=== PATIENT | male | born 1970 | race Caucasian/White ===

== ENCOUNTER 2017-11-04 17:54 | Emergency (ER) | payer BC ==
[2017-11-04 18:20] VITALS: BP 138/56; PULSE 81; RESP 20; TEMP 98.5
[2017-11-04] MEDS ORDERED: TETANUS-DIPHTHERIA TOX (PF) 0.5 ML VIAL IM ONE (18:54)
[2017-11-04] MEDS ORDERED: DIPH,PERTUS(ACELL)TETVAC-LF 0.5 ML VIAL IM ONE (19:00)
--- NOTE | 2017-11-04 19:05 | XR ---
PROCEDURE: XR finger LT 3V DATE AND TIME: 11/04/2017 7:01 PM CLINICAL INDICATION: [facility] Pain TECHNIQUE: Department protocol. 3V COMPARISON: None FINDINGS: There is no fracture or malalignment. The soft tissues are unremarkable. IMPRESSION: NO ACUTE PROCESS.
--- NOTE | 2017-11-04 19:07 | ED ---
Wound/Laceration HPI - General Chief Complaint: Wound/Laceration Stated Complaint: LACERATION LEFT MIDDLE FINGER Time Seen by Provider: 11/04/17 19:07 Source: patient, RN notes reviewed Mode of arrival: ambulatory Limitations: no limitations - History of Present Illness Initial Comments: This is a 47-year-old male who presents to the emergency department with chief complaint of left middle finger laceration. Patient states prior to arrival he was using an electric screwdriver, accidentally slipped and the screwdriver went into his left middle finger. States he has normal range of motion of the finger and normal sensation. Denies any other injuries or trauma. States he does not believe he is up-to-date with his tetanus vaccination. Denies recent fevers or chills, chest pain shortness of breath, abdominal pain, nausea or vomiting, numbness or tingling. - Related Data Home Medications Medication Instructions Recorded Confirmed Acetaminophen Tab [Tylenol] 500 - 1,000 mg PO Q6H PRN 06/22/15 07/01/15 Diazepam [Valium] 5 mg PO TID PRN 06/22/15 07/01/15 Meclizine [Antivert] 12.5 - 25 mg PO TID PRN 06/22/15 07/01/15 Omeprazole 40 mg PO AC-BRKFST 06/22/15 07/01/15 Albuterol Sulfate [Ventolin HFA] 2 puff INHALATION RT-QID PRN 06/26/15 07/01/15 Oxymetazoline 0.05% Nasl [place] 1 spray EA NOSTRIL DAILY PRN 07/01/15 07/01/15 [Afrin 0.05% Nasal [place]] Previous Rx's Medication Instructions Recorded Ibuprofen [Motrin] 800 mg PO Q8HR PRN #90 tab 07/04/15 Cephalexin [Keflex] 500 mg PO Q12HR #9 cap 11/04/17 Allergies Allergy/AdvReac Type Severity Reaction Status Date / Time No Known Allergies Allergy Verified 11/04/17 18:19 Review of Systems ROS Statement: Those systems with pertinent positive or pertinent negative responses have been documented in the HPI. ROS Other: All systems not noted in ROS Statement are negative. Past Medical History Past Medical History: GERD/Reflux, Musculoskeletal Disorder Additional Past Medical History / Comment(s): hx. re-occurring vertigo, herniated disc, borderline hypertension History of Any Multi-Drug Resistant Organisms: None Reported Past Surgical History: Orthopedic Surgery Additional Past Surgical History / Comment(s): right rotator cuff repair, back surgery 06/25 Past Anesthesia/Blood Transfusion Reactions: Motion Sickness, Postoperative Nausea & Vomiting (PONV) Past Psychological History: No Psychological Hx Reported Smoking Status: Former smoker Past Alcohol Use History: None Reported Past Drug Use History: None Reported - Past Family History Mother Family Medical History: Cancer General Exam - General Exam Comments Initial Comments: General: Awake and alert, well-developed; in no apparent distress. HEENT: Head atraumatic, normocephalic. Pupils are equal, round and reactive to light. Extraocular movements intact. Oropharynx moist without erythema or exudate. Neck: Supple. Normal ROM. Cardiovascular: Regular rate and rhythm. No murmurs, rubs or gallops. Chest symmetrical. Respiratory: Lungs clear to auscultation bilaterally. No wheezes, rales or rhonchi. Normal respiratory effort with no use of accessory muscles. Musculoskeletal: Normal range of motion of the left third finger. Sensation is intact. Radial pulses are 2+ equal and palpable bilaterally. Skin: Approximately 1.5 cm jagged linear laceration across palmar aspect mid left finger. No active bleeding. Neurological: Alert and oriented x3. CN II-XII grossly intact. Speech is fluent and answers are appropriate. No focal neuro deficits. Psychiatric: Normal mood and affect. No overt signs of depression or anxiety noted. Limitations: no limitations Course Vital Signs 11/04/17 18:18 Temperature 98.5 F Pulse Rate 81 Respiratory 20 Rate Blood Pressure 138/56 O2 Sat by Pulse 99 Oximetry Procedures - Laceration Laceration #1 Consent Obtained: verbal consent Indication: laceration Site: hand (Left third finger) Size (cm): 1 Depth: simple, single layer Anesthetic Used: lidocaine 1% Anesthesia Technique: local infiltration Amount (mls): 1 Pre-repair: wound explored, irrigated extensively, deep structures intact Type of Sutures: nylon Size of Sutures: 5-0 Number of Sutures: 2 Technique: simple, interrupted Patient Tolerated Procedure: well, no complications Medical Decision Making - Medical Decision Making This is a 47-year-old male who presents to the emergency department with chief complaint of left finger laceration. Patient sustained an approximately 1.5 cm laceration across the mid left third finger. 2 sutures were placed and patient tolerated well without complication. He is neurovascularly intact. X-ray was obtained which revealed no acute abnormalities. Deep structures are intact. Patient will be started on Keflex. Patient was made up-to-date with tetanus vaccination. Recommended removal of sutures in 10-14 days. Patient is in agreement with plan and voices understanding. His vital signs are stable and he is in no acute distress. He will be discharged home at this time. All questions were answered. - Radiology Data Radiology results: report reviewed Left third finger x-ray impression: No acute process. Disposition Clinical Impression: Finger laceration Disposition: HOME SELF-CARE Condition: Good Instructions: Finger Laceration (ED) Additional Instructions: Please have sutures removed in 10-14 days. Please take medications as prescribed. Please follow up with primary care provider within 1-2 days. Return to emergency department if symptoms should worsen or any concerns arise. Prescriptions: Cephalexin [Keflex] 500 mg PO Q12HR #9 cap Is patient prescribed a controlled substance at d/c from ED?: No Referrals: Daniel Gore MD [Primary Care Provider] - 1-2 days Time of Disposition: 19:46
[2017-11-04] MEDS ORDERED: CEPHALEXIN 500 MG CAP PO STA (19:41)
== END 2017-11-04 20:02 | disposition home or self-care (01) ==
LOC: EC 17:54
DX: S61.213A Laceration without foreign body of left middle finger without damage to nail, initial encounter (principal); K21.9 Gastro-esophageal reflux disease without esophagitis; Z23 Encounter for immunization; Z87.891 Personal history of nicotine dependence; Z98.890 Other specified postprocedural states; Z79.899 Other long term (current) drug therapy; W29.8XXA Contact with other powered hand tools and household machinery, initial encounter; Y92.009 Unspecified place in unspecified non-institutional (private) residence as the place of occurrence of the external cause; Y93.89 Activity, other specified
CPT/HCPCS: 12001; 90471; 90715; 99283

== ENCOUNTER 2021-03-18 09:36 | Emergency (ER) | payer BC ==
[2021-03-18] MEDS ORDERED: ACETAMINOPHEN TAB 500 MG TAB PO STA (10:20)
[2021-03-18] MEDS ORDERED: IBUPROFEN 800 MG TAB PO STA (10:20)
[2021-03-18] MEDS ORDERED: BAMLANIVIMAB (EUA) 700 MG, ETESEVIMAB (EUA) 1,400 MG in SODIUM CHLORIDE 0.9% 100 ML IVPB ONE (10:30)
[2021-03-18] MEDS ORDERED: SODIUM CHLORIDE 0.9% 50 ML IVPB ONE (10:30)
--- NOTE | 2021-03-18 10:31 | ED ---
General Adult HPI - General Chief complaint: Upper Respiratory Infection Stated complaint: Covid +, Headache, Fever Time Seen by Provider: 03/18/21 09:47 Source: patient, RN notes reviewed, old records reviewed Mode of arrival: ambulatory Limitations: no limitations - History of Present Illness Initial comments: Patient is a 51-year-old male with past medical history remarkable for asthma who presents emergency Department complaining of a Covid positive test seeking monoclonal antibody therapy. He endorses upper rest of her symptoms including nonproductive cough, congestion, body pain, mild tension headache and fatigue. Endorses fevers. Denies any shortness breath, chest pain, abdominal pain, nausea, vomiting. Has no other acute complaints at this time. Patient was not vaccinated for COVID-19. - Related Data Home Medications Medication Instructions Recorded Confirmed Acetaminophen Tab [Tylenol] 500 - 1,000 mg PO Q6H PRN 06/22/15 07/01/15 Meclizine [Antivert] 12.5 - 25 mg PO TID PRN 06/22/15 07/01/15 Omeprazole 40 mg PO AC-BRKFST 06/22/15 07/01/15 diazePAM [Valium] 5 mg PO TID PRN 06/22/15 07/01/15 Albuterol Sulfate [Ventolin HFA] 2 puff INHALATION RT-QID PRN 06/26/15 07/01/15 Oxymetazoline 0.05% Nasl [place] 1 spray EA NOSTRIL DAILY PRN 07/01/15 07/01/15 [Afrin 0.05% Nasal [place]] Previous Rx's Medication Instructions Recorded Ibuprofen [Motrin] 800 mg PO Q8HR PRN #90 tab 07/04/15 Cephalexin [Keflex] 500 mg PO Q12HR #9 cap 11/04/17 predniSONE [Deltasone] 40 mg PO DAILY 5 Days #10 tab 03/18/21 Allergies Allergy/AdvReac Type Severity Reaction Status Date / Time No Known Allergies Allergy Verified 03/18/21 09:41 Review of Systems ROS Statement: Those systems with pertinent positive or pertinent negative responses have been documented in the HPI. Review of Systems: CONST: Endorses fever EYES: Denies blurry vision ENT: Endorses nasal congestion C/V: Denies Chest pain RESP: Denies shortness of breath GI: Denies abdominal pain : Denies dysuria SKIN: Denies rash. MSK: Endorses joint pain NEURO: Endorses mild tension headache ROS Other: All systems not noted in ROS Statement are negative. Past Medical History Past Medical History: GERD/Reflux, Musculoskeletal Disorder Additional Past Medical History / Comment(s): hx. re-occurring vertigo, her niated disc, borderline hypertension History of Any Multi-Drug Resistant Organisms: None Reported Past Surgical History: Orthopedic Surgery Additional Past Surgical History / Comment(s): right rotator cuff repair, back surgery 06/25 Past Anesthesia/Blood Transfusion Reactions: Motion Sickness, Postoperative Nausea & Vomiting (PONV) Past Psychological History: No Psychological Hx Reported Smoking Status: Former smoker Past Alcohol Use History: None Reported Past Drug Use History: None Reported - Past Family History Mother Family Medical History: Cancer General Exam - General Exam Comments Initial Comments: General: Appears in no acute distress. Patient is febrile. HEAD: Normal with no signs of head trauma. EYES: PERRLA, EOMI, conjunctiva normal, no discharge. ENT: Hearing grossly intact, normal oropharynx. Active rhinorrhea. RESPIRATORY: Clear breath sounds bilaterally. Very mild end expiratory wheezing.. Not hypoxic. No increased work of breathing. C/V: Regular rate and rhythm. S1 and S2 auscultated, no edema, peripheral pulses 2+ and intact throughout ABD: Abd is soft, nontender, nondistended EXT: Normal range of motion, no obvious deformity SKIN: No rashes or lesions observed on exposed skin. NEURO: Alert and oriented 4. Limitations: no limitations Course Vital Signs 03/18/21 03/18/21 03/18/21 09:41 10:00 12:43 Temperature 99.5 F 101.5 F H 99.0 F Pulse Rate 98 97 Respiratory 16 18 Rate Blood Pressure 124/87 136/77 O2 Sat by Pulse 97 97 Oximetry Medical Decision Making - Medical Decision Making Based on the patient's presentation and physical exam, I'm concerned for acute COVID-19 pneumonia. He does have his positive results and his email, which she just got today. He was tested last Friday and symptoms started last Friday. He is not hypoxic no signs of respiratory distress. I do not believe that he requires further laboratory studies or imaging at this time. For his fever as well as mild headache, he will be administered Tylenol and Motrin. I did discuss with him monoclonal antibody therapy, which he did consent to. We were able to printed off his Covid 19 results. Patient tolerated therapy well. We discussed quarantine, as well as use of [id number] vitamin C, zinc. He has Ventolin at home already. As the patient is mildly wheezy, I will provide him with a prescription for prednisone as well, especially since he is a history of asthma. He was in agreement this plan. Strict return precautions were provided. Patient will be discharged home at this time. He was in agreement this plan. I instructed the patient to follow up with their PCP in the next 3 days. I explained that the patient should return to the emergency department if they experience any worsening symptoms. Strict return precautions were discussed with the patient. The patient expressed understanding of these instructions. I answered all questions that the patient had. The patient was discharged home in fair condition with their prescriptions and follow up information. Disposition Clinical Impression: COVID-19 virus infection Disposition: HOME SELF-CARE Condition: Fair Instructions (If sedation given, give patient instructions): Coronavirus Disease 2019 (COVID-19) Prescriptions: predniSONE [Deltasone] 40 mg PO DAILY 5 Days #10 tab Is patient prescribed a controlled substance at d/c from ED?: No Referrals: Sahil Dwyer MD [Primary Care Provider] - 1-2 days
[2021-03-18] MEDS ORDERED: predniSONE 50 MG TAB PO STA (10:54)
[2021-03-18] MEDS ORDERED: ALBUTEROL HFA INHALER INHALATION STA (10:55)
[2021-03-18 12:44] VITALS: BP 136/77; PULSE 97; RESP 18; TEMP 99
== END 2021-03-18 12:44 | disposition home or self-care (01) ==
LOC: EC 09:36
DX: U07.1 COVID-19 (principal); K21.9 Gastro-esophageal reflux disease without esophagitis; Z87.891 Personal history of nicotine dependence; Z79.1 Long term (current) use of non-steroidal anti-inflammatories (NSAID); Z79.899 Other long term (current) drug therapy
CPT/HCPCS: 99284; J7512; J3490

== ENCOUNTER 2021-12-19 20:20 | Observation (INO) | payer BC ==
[2021-12-19 21:21] LABS: Glucose,Whole Blood 99 mg/dL (70-110)
--- NOTE | 2021-12-19 21:26 | ED ---
General Adult HPI - General Chief complaint: Neuro Symptoms/Deficit Stated complaint: light headed, balance loss Time Seen by Provider: 12/19/21 21:11 Source: patient, RN notes reviewed, old records reviewed Mode of arrival: ambulatory Limitations: no limitations - History of Present Illness Initial comments: Patient is a 51-year-old male with past medical history remarkable for vertigo, chronic back pain who presents emergency Department complaining of sudden onset of neurological symptoms. Patient woke at approximately 6:30 PM this evening. He does work night shifts, went to bed last night having last awoken at 1:30 PM this afternoon to walk the dog's and had no symptoms. When he awoke at 6:30 PM, he felt off balance, and this was a different sensation than his normal vertigo. Denies any room spinning sensation or lightheadedness but states he feels off balance with walking and feels weak on the left side of his body. Presents to the emergency department this evening for further evaluation. I evaluated him when he was placed in a room and was notified by nursing staff of his condition. He states he feels better than earlier, however still has similar symptoms as earlier. States off-balance sensation may be improved. He denies any chest pain, shortness breath, abdominal pain, nausea, vomiting. Denies any headache. Denies any blurry vision or change in vision. Does have a chronic "lazy eye on the right". Denies any other acute complaints at this time. Denies any trauma or injury. Denies being on blood thinners. Denies any history of TIA or stroke. - Related Data Home Medications Medication Instructions Recorded Confirmed No Known Home Medications 12/19/21 12/19/21 Allergies Allergy/AdvReac Type Severity Reaction Status Date / Time morphine AdvReac Vomiting Verified 12/19/21 21:40 Review of Systems ROS Statement: Those systems with pertinent positive or pertinent negative responses have been documented in the HPI. Review of Systems: CONST: Denies fever EYES: Denies blurry vision ENT: Denies nasal congestion C/V: Denies Chest pain RESP: Denies shortness of breath GI: Denies abdominal pain : Denies dysuria SKIN: Denies rash. MSK: Denies joint pain. NEURO: Endorses left-sided weakness, feeling of off balance ROS Other: All systems not noted in ROS Statement are negative. Past Medical History Past Medical History: GERD/Reflux, Musculoskeletal Disorder Additional Past Medical History / Comment(s): hx. re-occurring vertigo, herniated disc, borderline hypertension History of Any Multi-Drug Resistant Organisms: None Reported Past Surgical History: Orthopedic Surgery Additional Past Surgical History / Comment(s): right rotator cuff repair, back surgery 06/25 Past Anesthesia/Blood Transfusion Reactions: Motion Sickness, Postoperative Nausea & Vomiting (PONV) Past Psychological History: No Psychological Hx Reported Smoking Status: Former smoker Past Alcohol Use History: None Reported Past Drug Use History: None Reported - Past Family History Mother Family Medical History: Cancer General Exam - General Exam Comments Initial Comments: General: Appears in no acute distress. HEAD: Normal with no signs of head trauma. EYES: PERRLA, EOMI, conjunctiva normal, no discharge. Pupils are 3 mm and equal bilaterally. ENT: Hearing grossly intact, normal oropharynx. RESPIRATORY: Clear breath sounds bilaterally. No wheezes, rales, or rhonchi. C/V: Regular rate and rhythm. S1 and S2 auscultated, no edema, peripheral pulses 2+ and intact throughout ABD: Abd is soft, nontender, nondistended EXT: Normal range of motion, no obvious deformity SKIN: No rashes or lesions observed on exposed skin. NEURO: Alert and oriented x 4. Cranial nerves II-XII intact. GCS of 15. NIH of approximately 3. 1 point for left upper extremity ataxia, and 1 point for left upper extremity and left lower extremity weakness with drift each. Normal [id number]-[id number] testing. Absence of dysdiadochokinesia. No sensory deficits. Limitations: no limitations Course Vital Signs 12/19/21 12/19/21 12/19/21 21:01 21:06 21:18 Temperature 98.2 F Pulse Rate 73 78 81 Respiratory 20 15 15 Rate Blood Pressure 155/88 159/71 166/74 O2 Sat by Pulse 98 100 98 Oximetry 12/19/21 12/19/21 22:03 22:29 Temperature Pulse Rate 72 78 Respiratory 15 15 Rate Blood Pressure 160/105 161/102 O2 Sat by Pulse 99 98 Oximetry Medical Decision Making - Medical Decision Making Based on patient's presentation and physical exam, and concern for his CVA. Patient does have a history of vertigo but the symptoms are different than his typical vertiginous symptoms. Has no lightheadedness or dizziness but just a feeling of being off balance. Also has drift in the left upper and left lower extremities. NIH is 3. Last known well was approximately 1:30 PM, which is approximate 7-1/2 hours prior to evaluation. Woke up with symptoms at 6:30 PM this evening. Patient is not a TPA candidate, as he is outside of the typical window and risks far outweigh the benefits at this time. Patient states sy mptoms are mildly improved from earlier. Code stroke was activated. We will obtain CT head imaging as well as laboratory studies. Vital signs are within acceptable limits. Point of care blood sugar is within acceptable limits. Patient was in agreement this plan. Patient's EKG does show signs of T-wave inversions in leads II, III, aVF with no recent prior EKG in our system. These findings are of an unknown chronicity.I spoke with neuro critical care Dr. Ellsworth who was in agreement to plan. Her blood sugar was within normal limits. Laboratory studies are unremarkable including an undetectable troponin. Chest x-ray showed no acute cardio pulmonary process. Brain CT showed no acute intracranial process. CT angiogram of the brain showed no acute intracranial process. On reevaluation, patient's NIH is 0. He will receive 325 mg of aspirin. Patient will be admitted at this time to observation for further monitoring. Neurology Dr. Chan was consulted to evaluate the patient in the morning. See consult to cardiology due to the EKG findings we will obtain traditional troponins. His no cardiac complaints including denying chest pain. EKG findings are of unknown ch ronicity. We discussed the likely is experiencing a TIA, as his symptoms have completely resolved. Expressed understanding. I answered all questions that had. I spoke with the admitting team, RONALD Sanchez of [facility] who accepted the patient. Patient was admitted to a telemetry bed. - Lab Data Result diagrams: 12/19/21 21:12/19/21 21:22 Lab Results 12/19/21 12/19/21 12/19/21 Range/Units : 21:: WBC 6.2 (3.8-10.6) k/uL RBC 5.27 (4.30-5.90) m/uL Hgb 16.3 (13.0-17.5) gm/dL Hct 46.6 (39.0-53.0) % MCV 88.5 (80.0-100.0) fL MCH 31.0 (25.0-35.0) pg MCHC 35.0 (31.0-37.0) g/dL RDW 11.3 L (11.5-15.5) % Plt Count 243 (150-450) k/uL MPV 7.7 Neutrophils % 62 % Lymphocytes % 26 % Monocytes % 6 % Eosinophils % 2 % Basophils % 1 % Neutrophils # 3.9 (1.3-7.7) k/uL Lymphocytes # 1.6 (1.0-4.8) k/uL Monocytes # 0.4 (0-1.0) k/uL Eosinophils # 0.1 (0-0.7) k/uL Basophils # 0.1 (0-0.2) k/uL PT 10.4 (9.0-12.0) sec INR 0.9 (<1.2) APTT 24.4 (22.0-30.0) sec Sodium (137-145) mmol/L Potassium (3.5-5.1) mmol/L Chloride (98-107) mmol/L Carbon Dioxide (22-30) mmol/L Anion Gap mmol/L BUN (9-20) mg/dL Creatinine (0.66-1.25) mg/dL Est GFR (CKD-EPI)AfAm (>60 ml/min/1.73 sqM) Est GFR (CKD-EPI)NonAf (>60 ml/min/1.73 sqM) Glucose (74-99) mg/dL POC Glucose (mg/dL) 99 (70-110) mg/dL POC Glu Floor Covering Layer ID Berny Caba Calcium (8.4-10.2) mg/dL Total Bilirubin (0.2-1.3) mg/dL AST (17-59) U/L ALT (4-49) U/L Alkaline Phosphatase (38-126) U/L Troponin I (0.000-0.034) ng/mL Total Protein (6.3-8.2) g/dL Albumin (3.5-5.0) g/dL 12/19/21 12/19/21 Range/Units 21:22 21:22 WBC (3.8-10.6) k/uL RBC (4.30-5.90) m/uL Hgb (13.0-17.5) gm/dL Hct (39.0-53.0) % MCV (80.0-100.0) fL MCH (25.0-35.0) pg MCHC (31.0-37.0) g/dL RDW (11.5-15.5) % Plt Count (150-450) k/uL MPV Neutrophils % % Lymphocytes % % Monocytes % % Eosinophils % % Basophils % % Neutrophils # (1.3-7.7) k/uL Lymphocytes # (1.0-4.8) k/uL Monocytes # (0-1.0) k/uL Eosinophils # (0-0.7) k/uL Basophils # (0-0.2) k/uL PT (9.0-12.0) sec INR (<1.2) APTT (22.0-30.0) sec Sodium 139 (137-145) mmol/L Potassium 4.8 (3.5-5.1) mmol/L Chloride 100 (98-107) mmol/L Carbon Dioxide 25 (22-30) mmol/L Anion Gap 14 mmol/L BUN 13 (9-20) mg/dL Creatinine 1.14 (0.66-1.25) mg/dL Est GFR (CKD-EPI)AfAm 85 (>60 ml/min/1.73 sqM) Est GFR (CKD-EPI)NonAf 73 (>60 ml/min/1.73 sqM) Glucose 108 H (74-99) mg/dL POC Glucose (mg/dL) (70-110) mg/dL POC Glu Floor Covering Layer ID Calcium 9.4 (8.4-10.2) mg/dL Total Bilirubin 0.6 (0.2-1.3) mg/dL AST 32 (17-59) U/L ALT 38 (4-49) U/L Alkaline Phosphatase 71 (38-126) U/L Troponin I <0.012 (0.000-0.034) ng/mL Total Protein 7.5 (6.3-8.2) g/dL Albumin 4.7 (3.5-5.0) g/dL - EKG Data -: EKG Interpreted by [facility] EKG Comments: 12-lead Electrocardiogram Interpretation Note EKG was reviewed and interpreted by myself. 12-lead ECG performed at 2118 is interpreted by me as revealing normal sinus rhythm at a rate of 75 beats per minute. [place] is normal. [place] Intervals 137 ms, QRS duration is 100 ms, QTc is 392 ms.. There are T-wave inversions in leads II, III, aVF. Only prior EKGs from over 6 years ago and these appear new. No ST segment depressions or elevations.. R wave progression across the precordium was satisfactory. By my interpretation, this EKG does show T-wave inversions in inferior leads which are new from a prior EKG from 2016. Findings are of an unknown chronicity. Critical Care Time Critical Care Time: Yes Total Critical Care Time: 35 Critical Care Time: Upon my evaluation, this patient had a high probability of imminent or life- threatening deterioration due to TIA, stroke activation, which required my direct attention, intervention, and personal management. I have personally provided 35 minutes of critical care time exclusive of time s pent on separately billable procedures. Time includes review of laboratory data, radiology results, discussion with consultants, and monitoring for potential decompensation. Interventions were performed as documented in my note. Disposition Clinical Impression: TIA (transient ischemic attack), T wave inversion in EKG Disposition: ADMITTED IP TO THIS [facility] Condition: Stable Time of Disposition: 22:50
[2021-12-19 21:40] LABS: Basophils # (A) 0.1 k/uL (0-0.2); Basophils % (A) 1 %; Eosinophils # (A) 0.1 k/uL (0-0.7); Eosinophils % (A) 2 %; HCT 46.6 % (39.0-53.0); HGB 16.3 gm/dL (13.0-17.5); Lymphocytes # (A) 1.6 k/uL (1.0-4.8); Lymphocytes % (A) 26 %; MCV 88.5 fL (80.0-100.0); Mean Platelet Volume 7.7; Monocytes # (A) 0.4 k/uL (0-1.0); Monocytes % (A) 6 %; Neutrophils # (A) 3.9 k/uL (1.3-7.7); Neutrophils % (A) 62 %; Platelet Count 243 k/uL (150-450); RBC 5.27 m/uL (4.30-5.90); RDW 11.3 % (11.5-15.5); WBC 6.2 k/uL (3.8-10.6)
--- NOTE | 2021-12-19 21:45 | CT ---
EXAMINATION TYPE: CT brain wo con for TPA CT DLP: 1255.8 mGycm, Automated exposure control for dose reduction was used. DATE OF EXAM: 12/19/2021 9:32 PM COMPARISON: CT brain 02/07/2015. CLINICAL INDICATION:Male, 51 years old with history of Neuro deficit, acute, stroke suspected, Neuro deficit, acute, stroke suspected TECHNIQUE: Brain: Axial CT images of the brain were obtained with coronal and sagittal reformats created and rev iewed. Contrast used: None. Oral contrast used: None. FINDINGS: Brain: Extra-axial spaces: No abnormal extra-axial fluid collections. Ventricular system: Within normal limits Cerebral parenchyma: No acute intraparenchymal hemorrhage or mass effect. The lujan-white junction is well differentiated. Cerebellum: Unremarkable. Mass effect: No evidence of midline shift. Intracranial vasculature: Atherosclerotic calcifications of the intracranial vessels. Soft tissues: Normal. Calvarium/osseous structures: No depressed skull fracture. Paranasal sinuses and mastoid air cells: Mild scattered paranasal sinus disease. Visualized orbits: Orbital contents are intact. IMPRESSION: No acute intracranial process.
[2021-12-19 21:50] LABS: Albumin 4.7 g/dL (3.5-5.0); Calcium 9.4 mg/dL (8.4-10.2); INR 0.9 (<1.2); Partial Thromboplastin Time 24.4 sec (22.0-30.0); Potassium 4.8 mmol/L (3.5-5.1); Prothrombin Time 10.4 sec (9.0-12.0); Total Bilirubin 0.6 mg/dL (0.2-1.3); Total Protein 7.5 g/dL (6.3-8.2)
--- NOTE | 2021-12-19 22:23 | CT ---
EXAMINATION TYPE: CT angio head neck DATE OF EXAM: 12/19/2021 COMPARISON: None HISTORY: Neuro deficit, acute, stroke suspected CT DLP: 2098.7 mGycm Automated exposure control for dose reduction was used. CONTRAST: Performed with IV Contrast, patient injected with 65cc mL of Isovue 370. Images obtained from the aortic arch to the vertex of the brain with the IV contrast. There are 3-D p ost processed images. There is normal branching pattern of the great vessels on the aortic arch. There is arterial flow in both subclavian arteries. There is arterial flow in the common internal and extra carotid arteries bi laterally. There is wide patency of the carotid artery bifurcations. There is arterial flow in both v ertebral arteries. Left vertebral artery is larger than the right. There is arterial flow in the vert ebral basilar artery system. There is arterial flow in the anterior middle and posterior cerebral arteries. No mass effect. No zac dence of intracranial arterial stenosis. No evidence of intracranial aneurysm or neovascularity. Ther e is normal enhancement of the venous sinuses. IMPRESSION: Negative CT angiogram of the neck. Negative CT angiogram of the brain.
[2021-12-19] MEDS ORDERED: ASPIRIN 325 MG TAB PO STA (22:36)
--- NOTE | 2021-12-19 23:22 | XR ---
EXAMINATION TYPE: XR chest 2V DATE OF EXAM: 12/19/2021 COMPARISON: 06/22/2015 HISTORY: Altered mental status TECHNIQUE: 2 view FINDINGS: Heart and mediastinum are normal. Lungs are clear. Diaphragm is normal. Bony thorax is inta ct. IMPRESSION: Normal chest. No change.
[2021-12-20 09:15] LABS: Chol/HDL Ratio 4.98 Ratio; LDL Cholesterol,Calculated 147.2 mg/dL (0.0-131.0)
--- NOTE | 2021-12-20 10:28 | P.CRDCN ---
History of Present Illness History of present illness: HISTORY OF PRESENTING ILLNESS This is a pleasant 51-year-old male past medical history significant for history of tobacco use quit 2013, GERD, and vertigo. He does not follow with a cardiolog ist. We are being consulted for EKG changes of unknown chronicity. He presents to the ER with complaints of episode yesterday of sudden onset of left sided weakness and gait disturbance. He works midnights, he woke up to take his dogs out and he suddenly felt off balance, he also had left arm and left-sided weakness. He felt as if he may fall. He states the symptoms were different than what he has with vertigo. He denies any lightheadedness, dizziness, palpitations, chest pain or shortness of breath. He denies any visual or auditory changes. He denies any bladder or bowel incontinence. His symptoms lasted for about 3-4 hours and his left sided weakness resolved around 10pm last night. He feels back to baseline. He has a family history of coronary disease with his father and mother having NM in 50s. He is a former tobacco smoker. Denies any alcohol or illicit drug use. He denies any history of CAD, NM, diabetes, hypertension, stroke, seizure, or arrhythmia. He takes no medications DIAGNOSTICS * EKG reveals sinus rhythm, heart rate 75, T wave inversions in inferior leads. No acute ischemia noted. * Telemetry tracings not available for review at bedside. * Chest xray no acute cardiopulmonary process * Brain CT reported no intracranial abnormality. * CT angiography of head and neck reported no acute abnormality. * Laboratory reviewed, CBC unremarkable, troponin negative 3, sodium 139, potassium 4.8, BUN 13, serum creatinine 1.1, triglycerides 111, cholesterol 212, LDL 147, HDL 42 REVIEW OF SYSTEMS At the time of my exam: CONSTITUTIONAL: Denies fever or chills. CARDIOVASCULAR: Denies chest pain, shortness of breath, orthopnea, PND or palpitations. RESPIRATORY: Denies cough. GASTROINTESTINAL: Denies abdominal pain, diarrhea, constipation, nausea or vomiting. MUSCULOSKELETAL: Denies myalgias. NEUROLOGIC: Denies numbness, tingling, headacbe or weakness. ENDOCRINE: Denies fatigue, weight change, polydipsia or polyurina. GENITOURINARY: Denies burning, hematuria or urgency with micturation. HEMATOLOGIC: Denies history of anemia or bleeding. PHYSICAL EXAMINATION Blood pressure 124/79, heart rate 87, afebrile, oxygen saturation is 98% on room air CONSTITUTIONAL: No apparent distress. HEENT: Head is normocephalic. Pupils are equal, round. Sclerae anicteric. Mucous membranes of the mouth are moist. No JVD. No carotid bruit. CHEST EXAMINATION: Lungs are clear to auscultation. No chest wall tenderness is noted on palpation or with deep breathing. HEART EXAMINATION: Regular rate and rhythm. S1, S2 heard. No murmurs, gallops or rub. ABDOMEN: Soft, nontender. Positive bowel sounds. EXTREMITIES: 2+ peripheral pulses, no lower extremity edema and no calf tendern ess. NEUROLOGIC EXAMINATION: Patient is awake, alert and oriented x3. ASSESSMENT Acute episode of Left sided weakness and gait imbalance, resolved concerning for TIA T wave inversions in inferior leads, no acute ischemic changes noted on EKG History of tobacco use Family history of coronary artery disease GERD History of Vertigo Dyslipidemia PLAN Obtain 2D echocardiogram and doppler study to assess cardiac structure and function. Lipid panel Neurology consulted Consider [facility] as inpatient vs outpatient, if patient remains inpatient overnight procedure can be completed tomorrow with Dr. Carrillo, patient is agreeable. This was also discussed with Neurology Dr. Chan Recommend 30 day event monitor prior to discharge If patient is discharged today per neurology and primary, follow up outpatient with Dr. Carrillo. Nurse practitioner note has been reviewed by physician. Signing provider agrees with the documented findings, assessment, and plan of care. Past Medical History Past Medical History: GERD/Reflux, Musculoskeletal Disorder Additional Past Medical History / Comment(s): hx. re-occurring vertigo, herniat ed disc, borderline hypertension History of Any Multi-Drug Resistant Organisms: None Reported Past Surgical History: Orthopedic Surgery Additional Past Surgical History / Comment(s): right rotator cuff repair, back surgery 06/25 Past Anesthesia/Blood Transfusion Reactions: Motion Sickness, Postoperative Nausea & Vomiting (PONV) Past Psychological History: No Psychological Hx Reported Smoking Status: Former smoker Past Alcohol Use History: None Reported Past Drug Use History: None Reported - Past Family History Mother Family Medical History: Cancer Father Family Medical History: Diabetes Mellitus Additional Family Medical History / Comment(s): Father had heart problems. Medications and Allergies Home Medications Medication Instructions Recorded Confirmed Type No Known Home Medications 12/19/21 12/19/21 History Allergies Allergy/AdvReac Type Severity Reaction Status Date / Time morphine AdvReac Vomiting Verified 12/19/21 21:40 Physical Exam Vitals: Vital Signs Temp Pulse Resp BP Pulse Ox 12/20/21 07:00 62 16 141/82 97 12/20/21 02:45 74 15 144/110 99 12/19/21 22:29 78 15 161/102 98 12/19/21 22:03 72 15 160/105 99 12/19/21 21:18 81 15 166/74 98 12/19/21 21:06 78 15 159/71 100 12/19/21 21:01 98.2 F 73 20 155/88 98 Intake and Output 12/19/21 12/20/21 12/20/21 22:59 06:59 14:59 Other: Weight 128.82 kg Results 12/19/21 21:22 12/19/21 21:22 Cardiac Enzymes 12/19/21 12/19/21 12/20/21 Range/Units 21:22 21:22 00:12 AST 32 (17-59) U/L Troponin I <0.012 <0.012 (0.000-0.034) ng/mL 12/20/21 Range/Units 04:16 AST (17-59) U/L Troponin I <0.012 (0.000-0.034) ng/mL Coagulation 12/19/21 Range/Units 21:22 PT 10.4 (9.0-12.0) sec APTT 24.4 (22.0-30.0) sec CBC 12/19/21 Range/Units 21:22 WBC 6.2 (3.8-10.6) k/uL RBC 5.27 (4.30-5.90) m/uL Hgb 16.3 (13.0-17.5) gm/dL Hct 46.6 (39.0-53.0) % Plt Count 243 (150-450) k/uL Comprehensive Metabolic Panel 12/19/21 Range/Units 21:22 Sodium 139 (137-145) mmol/L Potassium 4.8 (3.5-5.1) mmol/L Chloride 100 (98-107) mmol/L Carbon Dioxide 25 (22-30) mmol/L BUN 13 (9-20) mg/dL Creatinine 1.14 (0.66-1.25) mg/dL Glucose 108 H (74-99) mg/dL Calcium 9.4 (8.4-10.2) mg/dL AST 32 (17-59) U/L ALT 38 (4-49) U/L Alkaline Phosphatase 71 (38-126) U/L Total Protein 7.5 (6.3-8.2) g/dL Albumin 4.7 (3.5-5.0) g/dL Intake and Output 12/19/21 12/20/21 12/20/21 22:59 06:59 14:59 Other: Weight 128.82 kg 12/19/21 21:22 12/19/21 21:22
--- NOTE | 2021-12-20 10:29 | P.HPIM ---
History of Present Illness This is a pleasant 50 years old male with no significant past medical history. He is a patient of Dr. Null Presents because of loss of bolus and vertigo with junk feeling numbness in the left hand and weakness in the left leg and left arm Per records Surgeon himself states that he woke up yesterday from sleep at 6:30 and noticed that is been having difficulty walking because of bolus issue, he felt like he is trying although he did not have any headache or dizziness or lightheadedness. He had weakness in his left arm and leg with some tingling and numbness in his left hand. His symptoms lasted 2.5-to 3 hours. Patientstates his back to or close to his baseline. He denies smoking, he quit 9 years ago, no alcohol or illicit drugs Patient is hemodynamically stable, afebrile,. Labs show an unremarkable CBC, INR, BMP and liver enzymes. Serial troponins are negative. EKG showing normal sinus rhythm at [address]-T changes, patient has some T wave inversion and aVF. Chest x-ray: Normal chest. CTA of the head and neck: Negative exam for angiogram of the neck and negative CT angiogram of the brain Brain CT: No acute process or hemorrhage. Review of Systems Review of systems CONSTITUTIONAL: No fever, no malaise, no fatigue. HEENT: No recent visual problems or hearing problems. Denied any sore throat. CARDIOVASCULAR: No orthopnea, PND, no palpitations, no syncope. PULMONARY: No shortness of breath, no cough, no hemoptysis. GASTROINTESTINAL: No diarrhea, no nausea, no vomiting, no abdominal pain. Normoactive bowel sounds. NEUROLOGICAL: No headaches, no weakness, no numbness. HEMATOLOGICAL: Denies any bleeding or petechiae. GENITOURINARY: Denies any burning micturition, frequency, or urgency. MUSCULOSKELETAL/RHEUMATOLOGICAL: Denies any joint pain, swelling, or any muscle pain. ENDOCRINE: Denies any polyuria or polydipsia. Past Medical History Past Medical History: GERD/Reflux, Musculoskeletal Disorder Additional Past Medical History / Comment(s): hx. re-occurring vertigo, herniated disc, borderline hypertension History of Any Multi-Drug Resistant Organisms: None Reported Past Surgical History: Orthopedic Surgery Additional Past Surgical History / Comment(s): right rotator cuff repair, back surgery 06/25 Past Anesthesia/Blood Transfusion Reactions: Motion Sickness, Postoperative Nausea & Vomiting (PONV) Past Psychological History: No Psychological Hx Reported Smoking Status: Former smoker Past Alcohol Use History: None Reported Past Drug Use History: None Reported - Past Family History Mother Family Medical History: Cancer Father Family Medical History: Diabetes Mellitus Additional Family Medical History / Comment(s): Father had heart problems. Medications and Allergies Home Medications Medication Instructions Recorded Confirmed Type No Known Home Medications 12/19/21 12/19/21 History Allergies Allergy/AdvReac Type Severity Reaction Status Date / Time morphine AdvReac Vomiting Verified 12/19/21 21:40 Physical Exam Vitals: Vital Signs Temp Pulse Resp BP Pulse Ox 12/20/21 02:45 74 15 144/110 99 12/19/21 22:29 78 15 161/102 98 12/19/21 22:03 72 15 160/105 99 12/19/21 21:18 81 15 166/74 98 12/19/21 21:06 78 15 159/71 100 12/19/21 21:01 98.2 F 73 20 155/88 98 Intake and Output 12/19/21 12/20/21 12/20/21 22:59 06:59 14:59 Other: Weight 128.82 kg GENERAL: The patient is alert and oriented x3, not in any acute distress. Well developed, well nourished. HEENT: Pupils are round and equally reacting to light. EOMI. No scleral icterus. No conjunctival pallor. Normocephalic, atraumatic. No pharyngeal erythema. No thyromegaly. CARDIOVASCULAR: S1 and S2 present. No murmurs, rubs, or gallops. PULMONARY: Chest is clear to auscultation, no wheezing or crackles. ABDOMEN: Soft, nontender, nondistended, normoactive bowel sounds. No palpable organomegaly. MUSCULOSKELETAL: No joint swelling or deformity. EXTREMITIES: No cyanosis, clubbing, or pedal edema. NEUROLOGICAL: Gross neurological examination did not reveal any focal deficits. SKIN: No rashes. no petechiae. Results CBC & Chem 7: 12/19/21 21:22 12/19/21 21:22 Labs: Abnormal Lab Results - Last 24 Hours (Table) 12/19/21 12/19/21 Range/Units : 21: RDW 11.3 L (11.5-15.5) % Glucose 108 H (74-99) mg/dL Assessment and Plan Assessment: Episodes of left hemiparesis , possibly associated with vertigo and ataxia, Suspicious for CVA/TIA Obesity with BMI of 39.6, Plan: This is a pleasant 50 years old male who presents with varices and vertigo suspicious for TIA Continue with aspirin Neurology consult Labs and medication were reviewed.. Continue same treatment. Continue with symptomatic treatment. Resume home medication. Monitor lytes and vitals. DVT and GI prophylaxis. Further recommendations as per clinical course of the patient DVT prophylaxis: Subcutaneous heparin GI Prophylaxis: Pepcid
[2021-12-20] MEDS ORDERED: ATORVASTATIN 40 MG TAB PO SCH ×2 (10:30→21:00)
--- NOTE | 2021-12-20 11:06 | CA ---
Transthoracic Echo Report Name: Krystle Aguirre Age: 51 Gender: M : 1970 Exam Date: 12/20/2021 10:25 Exam Location: [facility] Ht (in): 71 Wt (lb): 284 Ordering Physician: Chantelle Rhodes Attending/Referring Phys: Land Title Examiner Celeste Mooney RDCS Procedure CPT: Indications: tia Cardiac Hx: Technical Quality: Fair Contrast 1: Total Dose (mL): Contrast 2: Total Dose (mL): MEASUREMENTS (Male / Female) Normal Values 2D ECHO LV Diastolic Diameter PLAX 4.7 cm 4.2 - 5.9 / 3.9 - 5.3 cm LV Systolic Diameter PLAX 3.0 cm IVS Diastolic Thickness 1.3 cm 0.6 - 1.0 / 0.6 - 0.9 cm LVPW Diastolic Thickness 1.3 cm 0.6 - 1.0 / 0.6 - 0.9 cm LV Relative Wall Thickness 0.6 RV Internal Dim ED PLAX 3.3 cm LA Systolic Diameter LX 4.1 cm 3.0 - 4.0 / 2.7 - 3.8 cm LA Volume 78.8 cm??? 18 - 58 / 22 - 52 cm??? M-MODE Aortic Root Diameter MM 3.6 cm MV E Point Septal Separation 1.0 cm AV Cusp Separation MM 1.7 cm DOPPLER AV Peak Velocity 149.7 cm/s AV Peak Gradient 9.0 mmHg MV Area PHT 3.6 cm??? Mitral E Point Velocity 81.6 cm/s Mitral A Point Velocity 95.7 cm/s Mitral E to A Ratio 0.9 MV Deceleration Time 213.0 ms FINDINGS Left Ventricle Left ventricular ejection fraction is estimated at 60-65 %. Left ventricular cavity size normal. Mild concentric left ventricular hypertrophy. Right Ventricle Mild right ventricular dilatation. Unable to estimate the right ventricular systolic pressure. Right Atrium Normal right atrial size. Left Atrium Mildly increased left atrial diameter. Moderately increased left atrial volume. Mildly increased left atrial area. No evidence for an atrial septal defect. Mitral Valve Structurally normal mitral valve. No evidence for mitral valve prolapse. Mild mitral regurgitation. Aortic Valve Trileaflet aortic valve. No aortic valve stenosis or regurgitation. Focal thickening of the aortic valve cusps. Tricuspid Valve Structurally normal tricuspid valve. No tricuspid stenosis, regurgitation or prolapse. Pulmonic Valve Trace pulmonic regurgitation. Pericardium Normal pericardium. No pericardial effusion. Aorta Normal size aortic root and proximal ascending aorta. CONCLUSIONS Left ventricular ejection fraction 60-65% Moderate LVH Mild to moderately dilated left atrium Mild mitral regurgitation No pericardial effusion Previewed by: Dr. Stephen Carrillo DO (Electronically Signed) Final Date: 20 December 2021 11:05
--- NOTE | 2021-12-20 13:37 | P.CNNES ---
History of Present Illness Consult date: 12/20/21 Requesting physician: Tristin Looney Reason for Consult: TIA History of Present Illness: Patient is a 51-year-old right-handed male came to the hospital yesterday at 8:20 PM for evaluation of transient episode of lightheadedness, dizziness, imbalance. 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 Yesterday afternoon he was in usual state of health. He went to sleep at 3 PM, and woke up at 6:30 PM. When he woke up, he was fine. As soon as he stood up to take his dog out, he felt very imbalanced, lightheaded, dizzy, but no vertigo. He had to use the chappell to stand up and balance himself. He waddled over to the chair and sat there until his came over in half an hour. When she came, he was sitting on the edge of the couch. He denied any visual symptoms. He noticed tingling of the left hand, left arm and leg, that persisted till 9:30 to 10 PM and then it resolved. While walking he was noticing that he was veering to the left side. Vital signs arrival blood pressure 155/88, pulse rate [address] head showed no acute intracranial process. CTA of head and neck reported as "negative". Chest x-ray is normal. EKG shows sinus rhythm with sinus arrhythmia. Blood test shows normal CBC PT/PTT, normal CMP, normal troponin. Patient states that he has borderline hypertension does not take any medication. Denies diabetes. He has smoked 1-2 pack per day for 30 years, quit 9 years a go. He denies any alcohol, marijuana or drug use. Patient does not take any medication at home. Patient states that about a year ago he fell off a ladder, landed on the back of his head on the brick floor. He did not lose consciousness. Since then he has been having intermittent episodes of transient visual disturbance, as if he is looking through the broken glass with [place] affect and kaleidoscope. The symptoms last for about half an hour and then he gets a major headache, the last for an hour. These episodes are occurring about once or twice a week. He denies any loss of awareness or mental confusion with these episodes. No history of seizures. Patient admits to having decreased hearing in the right side, no tinnitus, no pain or pressure in the ear. At present he denies any neurological symptoms. Review of Systems Constitutional: Reports chronic headaches, Denies chills, Denies fever Eyes: bilateral tunnel vision/blind spots (Intermittently as mentioned in HPI.) Ears: right: decreased hearing, deny: ear discharge, earache, tinnitus Ears, nose, mouth and throat: Denies sore throat Cardiovascular: Denies chest pain, Denies shortness of breath Respiratory: Denies cough Gastrointestinal: Denies abdominal pain, Denies diarrhea, Denies nausea, Denies vomiting Musculoskeletal: Denies myalgias Integumentary: Denies pruritus, Denies rash Neurological: Reports as per HPI Psychiatric: Denies anxiety, Denies depression Endocrine: Denies fatigue, Denies weight change Hematologic/Lymphatic: Denies easy bruising Allergic/Immunologic: Denies persistent infections Past Medical History Past Medical History: GERD/Reflux, Musculoskeletal Disorder Additional Past Medical History / Comment(s): hx. re-occurring vertigo, herniated disc, borderline hypertension History of Any Multi-Drug Resistant Organisms: None Reported Past Surgical History: Orthopedic Surgery Additional Past Surgical History / Comment(s): right rotator cuff repair, back surgery 06/25 Past Anesthesia/Blood Transfusion Reactions: Motion Sickness, Postoperative Nausea & Vomiting (PONV) Additional Past Anesthesia/Blood Transfusion Reaction / Comment(s): Pt has clausterphobia. Smoking Status: Former smoker - Past Family History Mother Family Medical History: Cancer Additional Family Medical History / Comment(s): Mother is . Lymphoma, e sophageal and lung cancer. Father Family Medical History: Diabetes Mellitus Additional Family Medical History / Comment(s): Father had heart problems. Medications and Allergies Home Medications Medication Instructions Recorded Confirmed Type No Known Home Medications 12/19/21 12/19/21 History Allergies Allergy/AdvReac Type Severity Reaction Status Date / Time morphine AdvReac Vomiting Verified 12/19/21 21:40 Physical Examination - Vital Signs Vital Signs: Vital Signs Temp Pulse Resp BP Pulse Ox 12/20/21 10:08 87 16 124/79 98 12/20/21 07:00 62 16 141/82 97 12/20/21 02:45 74 15 144/110 99 12/19/21 22:29 78 15 161/102 98 12/19/21 22:03 72 15 160/105 99 12/19/21 21:18 81 15 166/74 98 12/19/21 21:06 78 15 159/71 100 12/19/21 21:01 98.2 F 73 20 155/88 98 Intake and Output 12/19/21 12/20/21 12/20/21 22:59 06:59 14:59 Other: Weight 128.82 kg 128.82 kg Patient is a middle aged male, in no acute distress. Patient is alert awake oriented to time place and person. Speech and language functions are normal. Patient can name and repeat very well. No aphasia or dysarthria. Attention, concentration and fund of knowledge is adequate. On cranial nerve examination, pupils are equal, round and reacting to light (sometimes looks like left is slightly bigger, but other times looks equal in size), visual obrien are full on confrontation, with no neglect on double simultaneous depression. Extraocular muscles are intact with no nystagmus. Face is symmetric, tongue protrudes to the midline. Palatal elevation and sensation normal, hearing and shoulder shrug normal, facial sensation normal. On muscle strength testing, there is no pronator drift and the strength is normal in arms and legs distally and proximally. Deep tendon reflexes are symmetric 1 at biceps, 1 brachioradialis, 2 at the knees, 1 ankles and plantars downgoing bilaterally. Sensory to touch is equal with no neglect on double simultaneous stimulation. Cerebellar function showed no ataxia for [id number] testing. No dysdiadochokinesia. No ataxia for [id number] testing on either side. Tone and bulk of muscles normal. Gait deferred.. On general examination, there is no carotid bruit or murmur, S1-S2 audible. Chest is clear on consultation. Abdomen is soft nontender. No organomegaly, bowel sounds present. Peripheral pulses are present. No edema. Results - Laboratory Findings CBC and BMP: 12/19/21 21:22 12/19/21 21:22 Abnormal Lab Findings: Abnormal Labs 12/19/21 12/19/21 12/20/21:22 21:22 04:16 RDW 11.3 L Glucose 108 H Cholesterol 212.00 H LDL Cholesterol, Calc 147.2 H Assessment and Plan Assessment: * Possible TIA manifesting with gait imbalance, and left-sided paresthesias/weak ness. Symptoms resolved in around 4 hours. At present his NIH stroke seen is 0. Patient not a candidate for TPA. * Recurrent stereotypical episodes of visual disturbance followed by headache. These episodes started after his closed head injury about a year ago. Differential diagnosis includes possible migraine versus focal seizure, less likely TIA. * Hypertension * Hyperlipidemia * X tobacco use Plan: * MRI of the brain to evaluate for an acute stroke. * EEG to rule out any epileptiform activity (related to recurrent visual disturbance) * CTA of head and neck are normal. * 2-D echo revealed left-ventricular ejection fraction 60-65% moderate LVH. Mild to moderately dilated left atrium. * Hemoglobin A1c * Lipid panel with cholesterol 212, LDL 147, HDL 42 and triglycerides 111. Start Lipitor 40 mg daily to target LDL <70. * Patient was loaded with aspirin 324 mg in the ER. We will start patient on aspirin 81 mg daily. * Agree with event monitor. * Telemetric monitoring. * Neurology will follow. Thank you for the consult.
[2021-12-20] MEDS: ASPIRIN 81 MG PO SCH (14:32)
[2021-12-20 17:18] LABS: Appearance,Urine Clear (Clear); Bilirubin,Urine Negative (Negative); Blood,Urine Negative (Negative); Color,Urine Light Yellow; Glucose,Urine (UA) Negative (Negative); Ketones,Urine Negative (Negative); Leukocyte Esterase,Urine Negative (Negative); Nitrite,Urine Negative (Negative); PH, Urine 5.5 (5.0-8.0); Protein,Urine Negative (Negative); Specific Gravity,Urine 1.012 (1.001-1.035); Urobilinogen,Urine <2.0 mg/dL (<2.0)
[2021-12-20 17:35] LABS: Amphetamine Screen,Urine Not Detected (NotDetected); Barbiturate Screen,Urine Not Detected (NotDetected); Benzodiazepines Screen,Urine Not Detected (NotDetected); Cocaine Screen,Urine Not Detected (NotDetected); Methadone Screen, Urine Not Detected (NotDetected); Opiate Screen,Urine Not Detected (NotDetected); Oxycodone Screen, Urine Not Detected (NotDetected); Phencyclidine Screen,Urine Not Detected (NotDetected); Tricyclic Antidepressant,Urine Not Detected (NotDetected); Urn Cannabinoid Scrn Not Detected (NotDetected)
--- NOTE | 2021-12-20 19:40 | MR ---
MR brain without contrast HISTORY: TIA, neuro deficit Multiplanar multisequence imaging through the brain, correlation to CT brain 12/19/2021 FINDINGS: There is artifact on the exam There is no restricted diffusion. Subcortical focus of hyperintensity and inversion recovery T2-weigh catalina sequences in the left frontal white matter, axial image 26 measuring 6 mm, 2 additional smaller f oci are present of questionable clinical significance in the frontal lobes. There is no hemorrhage or hydrocephalus. Corpus callosum, pituitary, cervical medullary junction, cerebellopontine angles are within normal limits. There is mild inflammatory change within the ethmoid air cells. Orbits show sym metric appearance. There are expected vascular flow voids. IMPRESSION: No subacute ischemia evident. Nonspecific white matter demyelination. Sinus disease.
[2021-12-20] MEDS: HEPARIN SODIUM,PORCINE/PF 5,000 UNIT/0.5 ML SYRINGE SQ SCH (20:11)
[2021-12-20] MEDS: FAMOTIDINE 20 MG/2 ML VIAL IV SCH (20:11)
[2021-12-20 22:23] VITALS: TEMP 97.8
[2021-12-21 04:09] VITALS: RESP 16
[2021-12-21] MEDS ORDERED: fentaNYL (PF) 50 MCG/ML 2 ML AMP ONE (09:25)
[2021-12-21] MEDS ORDERED: SODIUM CHLORIDE 0.9% 500 ML 500 ML IV ONE (09:51)
[2021-12-21] MEDS ORDERED: BENZOCAINE SPRAY 1 CAN MUCOUS MEM ONE (09:53)
[2021-12-21] MEDS: fentaNYL (PF) 50 MCG/ML 2 ML AMP IV ONE ×2 (09:54→09:56)
[2021-12-21] MEDS ORDERED: MIDAZOLAM 2 MG/2 ML VIAL IV ONE ×2 (09:54→09:56)
[2021-12-21 10:38] VITALS: PULSE 75
[2021-12-21 11:05] VITALS: BP 127/87
--- NOTE | 2021-12-21 11:05 | P.PN ---
Subjective This is a pleasant 50 years old male with no significant past medical history. He is a patient of Dr. Null Presents because of loss of bolus and vertigo with junk feeling numbness in the left hand and weakness in the left leg and left arm Per records Surgeon himself states that he woke up yesterday from sleep at 6:30 and noticed that is been having difficulty walking because of bolus issue, he felt like he is trying although he did not have any headache or dizziness or lightheadedness. He had weakness in his left arm and leg with some tingling and numbness in his left hand. His symptoms lasted 2.5-to 3 hours. Patientstates his back to or close to his baseline. He denies smoking, he quit 9 years ago, no alcohol or illicit drugs Patient is hemodynamically stable, afebrile,. Labs show an unremarkable CBC, INR, BMP and liver enzymes. Serial troponins are negative. EKG showing normal sinus rhythm at [address]-T changes, patient has some T wave inversion and aVF. Chest x-ray: Normal chest. CTA of the head and neck: Negative exam for angiogram of the neck and negative CT angiogram of the brain Brain CT: No acute process or hemorrhage. 12/21/1921 Patient symptoms resolved since yesterday. No more left sided weakness, no dizziness or vertigo, no ataxia and patient was able to walk around with no difficulty. No other complaints or symptoms Patient MRI of the brain showing no subacute ischemia Echocardiogram showed ejection fraction of 60-65% Patient had AIDAN with [employer]er [employer] this morning, results still pending. Patient was told by cardiology team he can go home from their perspective as he states. EEG of the brain is also pending event monitor placed in the left upper chest Patient currently is on aspirin 81 mg Patient was informed for the need for to follow-up with cardiology attending neurologist team N1 to 2 weeks as an outpatient basis as his PCP and he verbalized understanding and acceptance Objective - Vital Signs Vital signs: Vital Signs Temp 97.8 F 12/21/21 04:00 Pulse 75 12/21/21 10:36 Resp 16 12/21/21 10:36 BP 132/87 12/21/21 10:36 Pulse Ox 97 12/21/21 10:36 FiO2 Intake & Output 12/20/21 12/21/21 12/21/21 18:59 06:59 18:59 Intake Total 840 0 100 Balance 840 0 100 Weight 128.82 kg Intake: IV 100 Oral 840 0 Other: Voiding Method Toilet Toilet # Voids 3 1 - Exam GENERAL: The patient is alert and oriented x3, not in any acute distress. Well developed, well nourished. HEENT: Pupils are round and equally reacting to light. EOMI. No scleral icterus. No conjunctival pallor. Normocephalic, atraumatic. No pharyngeal erythema. No thyromegaly. CARDIOVASCULAR: S1 and S2 present. No murmurs, rubs, or gallops. PULMONARY: Chest is clear to auscultation, no wheezing or crackles. ABDOMEN: Soft, nontender, nondistended, normoactive bowel sounds. No palpable organomegaly. MUSCULOSKELETAL: No joint swelling or deformity. EXTREMITIES: No cyanosis, clubbing, or pedal edema. NEUROLOGICAL: Gross neurological examination did not reveal any focal deficits. SKIN: No rashes. no petechiae. - Labs CBC & Chem 7: 12/19/21 21:22 12/19/21 21:22 Assessment and Plan Assessment: Episodes of left hemiparesis , possibly associated with vertigo and ataxia, Suspicious for TIA. MRI of the brain is negative. EKG pending to rule out seizure Obesity with BMI of 39.6, Plan: This is a pleasant 50 years old male who presents with varices and vertigo suspicious for TIA Continue with aspirin Neurology consult Cardiology consult Follow-up EEG and the report 40 Labs and medication were reviewed.. Continue same treatment. Continue with symptomatic treatment. Resume home medication. Monitor lytes and vitals. DVT and GI prophylaxis. Further recommendations as per clinical course of the patient DVT prophylaxis: Subcutaneous heparin GI Prophylaxis: Pepcid we are expecting patient to be discharged soon once cleared by consultants and patient remains stable
[2021-12-21] MEDS: HEPARIN SODIUM,PORCINE/PF 5,000 UNIT/0.5 ML SYRINGE SQ SCH (11:09)
[2021-12-21] MEDS: ASPIRIN 81 MG PO SCH (11:09)
[2021-12-21] MEDS: FAMOTIDINE 20 MG/2 ML VIAL IV SCH (11:10)
--- NOTE | 2021-12-21 14:41 | P.PN ---
Subjective Progress Note Date: 12/21/21 Patient offers no complaints. No further neurological symptoms. Objective - Vital Signs Vital signs: Vital Signs Temp 97.8 F 12/21/21 04:00 Pulse 75 12/21/21 11:05 Resp 16 12/21/21 11:05 BP 127/87 12/21/21 11:05 Pulse Ox 94 L 12/21/21 11:05 FiO2 Intake & Output 12/20/21 12/21/21 12/21/21 18:59 06:59 18:59 Intake Total 840 0 100 Balance 840 0 100 Weight 128.82 kg Intake: IV 100 Oral 840 0 Other: Voiding Method Toilet Toilet # Voids 3 1 1 - Exam Normal. Mentation normal. Cranial nerves and motor and sensations and coordin ation all normal. - Labs CBC & Chem 7: 12/19/21 21:22 12/19/21 21:22 Assessment and Plan Assessment: * Possible TIA manifesting with gait imbalance, and left-sided paresthesias/weakness. Symptoms resolved in around 4 hours. At present his NIH stroke seen is 0. Patient not a candidate for TPA. * Recurrent stereotypical episodes of visual disturbance followed by headache. These episodes started after his closed head injury about a year ago. Differential diagnosis includes possible migraine versus focal seizure, less likely TIA. * Hypertension * Hyperlipidemia * X tobacco use Plan: * MRI of the brain normal. No acute ischemic process. Nonspecific white matter disease. Sinus disease. I personally reviewed MRI of the brain, agree with findings. * EEG was performed and normal. * CTA of head and neck are normal. * 2-D echo revealed left-ventricular ejection fraction 60-65% moderate LVH. Mild to moderately dilated left atrium. * AIDAN performed today, preliminary report normal. Official report pending. * Hemoglobin A1c 5.9 * Lipid panel with cholesterol 212, LDL 147, HDL 42 and triglycerides 111. Start Lipitor 40 mg daily to target LDL <70. * Patient was loaded with aspirin 324 mg in the ER. We will start patient on aspirin 81 mg daily. * Event monitor has been placed. Cardiology will follow the results. * Discussed with patient about starting Inderal for blood pressure and migraine prophylaxis. Patient wants to hold off on Inderal. Patient was informed that if he continues to have episodic visual disturbance, which are possible migraines, he should follow up with neurologist as an outpatient for management of these spells. * Neurologically clear for discharge.
--- NOTE | 2021-12-21 15:41 | EEG ---
ELECTROENCEPHALOGRAM REPORT PREAMBLE: This is a 51-year-old male, who came with an episode of imbalance. The patient has been having recurrent stereotypical spells of visual disturbance followed by headache. This study is performed to rule out any epileptiform activity. EEG FINDINGS: This is a 21-channel digital EEG recorded with video competent, utilizing 10/20 international system with referential and bipolar montages. Background consists of well-developed, well-regulated, [id number] amplitude 10 to 11 Hz alpha activity, seen in posterior head region. Background is posterior dominant and reactive to eye opening and closing. Some drowsiness was seen with presence of bilaterally symmetric theta frequency rhythm. Deeper stages of sleep were not seen. Photic driving response was not clearly seen. No focal or generalized epileptiform activity was seen. EKG channel showed no obvious arrhythmia. IMPRESSION: This is a normal awake and drowsy EEG. No focal, lateralized, or epileptiform activity was seen. MMODL / IJN: [id number] /
--- NOTE | 2021-12-21 18:14 | P.TEE ---
Description of Procedure(s): Procedure performed: Transesophageal Echocardiogram with color flow doppler, pulsed wave doppler and continuous wave doppler, moderate conscious sedation Moderate conscious sedation: Moderate conscious sedation was supplied with direct supervision of myself using Versed and Fentanyl. Complications: none Indications: Cryptogenic stroke PROCEDURE: After the risks, benefits and alternatives of the above mentioned procedure was explained in detail with the patient, informed consent was obtained. Patient was brought to the lab in a fasting state. Patient was given IV Versed and Fentanyl for sedation. The throat was sprayed with Hurricane to anesthetize the throat. A lubricated Omni probe was then introduced into the e sophagus and stomach and multiple views were obtained. 2D echo with color flow doppler, pulsed wave doppler and continuous wave doppler was utilized. Agitated saline bubbles were injected to assess for any intra-atrial shunt. The probe was then removed. Patient tolerated the procedure well. Patient was transferred to the post procedure area in stable and satisfactory condition. FINDINGS: 1. The aortic valve is tricuspid and functioning normally without significant aortic stenosis. 2. The mitral valve appears be normal with mild mitral regurgitation. 3. Tricuspid valve is normal without significant tricuspid regurgitation. 4. The interatrial septum is intact. No evidence of PFO. 5. Left atrial appendage is free of clot. 6. Left ventricular size and function are normal with left ventricular ejection fraction 55%
== END 2021-12-21 16:01 | disposition home or self-care (01) ==
LOC: EC 20:20 → 6NMEDSUR 23:24 → 3SCARD 12-20 08:47
PROVIDERS: ADMIT Hospitalist; ATTEND Hospitalist
DX: R53.1 Weakness (principal); R26.2 Difficulty in walking, not elsewhere classified; H53.9 Unspecified visual disturbance; M54.9 Dorsalgia, unspecified; G89.29 Other chronic pain; K21.9 Gastro-esophageal reflux disease without esophagitis; I67.2 Cerebral atherosclerosis; H91.91 Unspecified hearing loss, right ear; E66.9 Obesity, unspecified; E78.5 Hyperlipidemia, unspecified; G37.8 Other specified demyelinating diseases of central nervous system; I34.0 Nonrheumatic mitral (valve) insufficiency; I37.1 Nonrheumatic pulmonary valve insufficiency; Z87.891 Personal history of nicotine dependence; Z88.6 Allergy status to analgesic agent; Z80.9 Family history of malignant neoplasm, unspecified; Z83.3 Family history of diabetes mellitus; Z68.39 Body mass index [BMI] 39.0-39.9, adult; Z82.49 Family history of ischemic heart disease and other diseases of the circulatory system; Z80.1 Family history of malignant neoplasm of trachea, bronchus and lung; Z80.7 Family history of other malignant neoplasms of lymphoid, hematopoietic and related tissues; Z79.82 Long term (current) use of aspirin
CPT/HCPCS: 96372 ×2; 96374; 96376; 99285; 36415; 95819; 93005; 93312; 93320; 93306; 93325; 93270; 97161; 97165; 80061; 80053; 84484 ×2; 85025; 85610; 85730; 81003; 80306; 83036; 71046; 70496; 70450; 70498; 70551; G0378 ×3; J2250; J3010; Q9967; J1644 ×2